=== PATIENT | male | born 2000 | race Caucasian/White ===

== ENCOUNTER 2019-05-20 12:12 | Emergency (ER) | payer OTHER ==
[~2019-05-20] VITALS: Ht 182.9 cm; Wt 79.4 kg
[~2019-05-20 12:12] MED LIST: CRUTCH3 XX; IBUP600 PO; Pepcid20 MG PO; Prednisone20 MG PO
[2019-05-20 12:41] LABS: BASOPHILS ABSOLUTE AUTO 0.07 K/mm3 (0.00-0.23); BASOPHILS PERCENT AUTO 0 % (0-2); EOSINOPHILS ABSOLUTE AUTO 0.17 K/mm3 (0.00-0.68); EOSINOPHILS PERCENT AUTO 1 % (0-6); Hematocrit 48.2 % (37.0-53.0); Hemoglobin 16.5 g/dL (13.5-17.5); IMMATURE GRAN ABSOLUTE AUTO 0.08 K/mm3 (0.00-0.10); IMMATURE GRAN PERCENT AUTO 0 % (0-1); LYMPHOCYTES ABSOLUTE AUTO 1.13 K/mm3 (0.84-5.20); LYMPHOCYTES PERCENT AUTO 6 % (21-46); MONOCYTES ABSOLUTE AUTO 1.33 K/mm3 (0.16-1.47); MONOCYTES PERCENT AUTO 7 % (4-13); Mean Corpuscular HGB Conc 34.2 g/dL (31.5-36.5); Mean Corpuscular Volume 90 fL (80-100); Mean Platelet Volume 9.9 fL (9.1-12.4); NEUTROPHILS ABSOLUTE AUTO 16.16 K/mm3 (1.96-9.15); NEUTROPHILS PERCENT AUTO 85 % (41-73); Platelet Count 261 K/mm3 (150-400); Red Blood Cell Count 5.33 M/mm3 (4.30-5.90); White Blood Cell Count 18.94 K/mm3 (4.00-11.30)
[2019-05-20 12:59] LABS: Alanine Aminotransfer (ALT/SGP 25 U/L (12-78); Albumin, Blood 4.3 g/dL (3.4-5.0); Albumin/Globulin Ratio 1.2 (0.8-1.8); Alk Phos 75 U/L (50-136); Anion Gap 8 mmol/L (6-16); Aspartate Aminotrans (AST/SGOT 22 U/L (12-37); Bilirubin, Total 1.6 mg/dL (0.1-1.0); Blood Urea Nitrogen 11 mg/dL (8-24); Bun/Creatinine Ratio 11.7 (12.0-20.0); CO2, Blood 22 mmol/L (21-32); Calcium, Blood 9.3 mg/dL (8.5-10.1); Chloride, Blood 110 mmol/L (98-108); Creatinine, Blood 0.94 mg/dL (0.60-1.20); Globulin, Blood 3.7 g/dL (2.2-4.0); Glomerular Filtration Rate >60 (60-); Glucose, Blood 93 mg/dL (70-99); Potassium, Blood 3.9 mmol/L (3.5-5.5); Sodium, Blood 140 mmol/L (136-145)
[2019-05-20] MEDS ORDERED: Zofran4 MG PO (14:18)
== END 2019-05-20 14:44 | disposition home or self-care (01) ==
LOC: ER 12:12
PROVIDERS: Physician Assistant
DX: R11.2 Nausea with vomiting, unspecified (principal); R19.7 Diarrhea, unspecified; R10.84 Generalized abdominal pain; F17.200 Nicotine dependence, unspecified, uncomplicated
CPT/HCPCS: 36415; 80053; 83690; 85025; 96361; 96374; 99284-25; J2405; J7030

== ENCOUNTER 2020-07-06 23:51 | Emergency (ER) | payer OTHER ==
[~2020-07-06] VITALS: Ht 182.9 cm; Wt 75.3 kg
[~2020-07-06 23:51] MED LIST changes: +Zofran4 MG PO
[2020-07-07] MEDS ORDERED: AMOCLA875 PO (00:34)
== END 2020-07-07 00:58 | disposition home or self-care (01) ==
LOC: ER 23:51
DX: S70.252A Superficial foreign body, left hip, initial encounter (principal); F17.210 Nicotine dependence, cigarettes, uncomplicated; Z23 Encounter for immunization; W45.8XXA Other foreign body or object entering through skin, initial encounter; Y93.89 Activity, other specified
CPT/HCPCS: 10120; 36415; 90471; 90714; 96365; 99282-25; A9270; J0696

== ENCOUNTER 2020-12-27 07:34 | Emergency (ER) | payer OTHER ==
[~2020-12-27] VITALS: Ht 182.9 cm; Wt 74.8 kg
[~2020-12-27 07:34] MED LIST changes: +AMOCLA875 PO
[2020-12-27 08:53] LABS: Source, Urine Clean Catch
[2020-12-27 09:02] LABS: Appearance, Urine Clear (Clear); Bilirubin, Urine Neg (Neg); Blood, Urine Neg (Neg); Color, Urine Yellow (P-Yellow); Glucose Qualitative, Urine Neg (Neg); Ketones, Urine Neg (Neg); Leukocyte Esterase, Urine Neg (Neg); Nitrite, Urine Neg (Neg); Protein, Urine Neg (Neg); Specific Gravity, Urine 1.015 (1.003-1.022); Urobilinogen, Urine NORM (Normal)
[2020-12-27] MEDS ORDERED: Robaxin-750750 MG PO (09:30)
[2020-12-27] MEDS ORDERED: IBUP800 PO (09:30)
== END 2020-12-27 09:49 | disposition home or self-care (01) ==
LOC: ER 07:34
PROVIDERS: Physician Assistant
DX: M54.6 Pain in thoracic spine (principal); F17.210 Nicotine dependence, cigarettes, uncomplicated
CPT/HCPCS: 81003; 96372; 99283-25; J1885

== ENCOUNTER 2022-02-26 02:25 | Emergency (ER) | payer OTHER ==
[~2022-02-26] VITALS: Ht 180.3 cm; Wt 83.0 kg
[~2022-02-26 02:25] MED LIST changes: +IBUP800 PO; +Robaxin-750750 MG PO
[2022-02-26] MEDS ORDERED: CYCL10 PO (03:34)
[2022-02-26] MEDS ORDERED: IBUP600 PO (03:34)
== END 2022-02-26 03:56 | disposition home or self-care (01) ==
LOC: ER 02:25
DX: M62.830 Muscle spasm of back (principal); F17.210 Nicotine dependence, cigarettes, uncomplicated
CPT/HCPCS: A9270; J1885

== ENCOUNTER 2022-03-24 07:31 | Emergency (ER) | payer OTHER ==
[~2022-03-24] VITALS: Ht 177.8 cm; Wt 87.5 kg
[~2022-03-24 07:31] MED LIST changes: +CYCL10 PO
[2022-03-24] MEDS ORDERED: TRAM50 PO (08:23)
[2022-03-24] MEDS ORDERED: AMOX500 PO (08:23)
[2022-03-24] MEDS ORDERED: IBU800 MG PO (08:23)
== END 2022-03-24 08:30 | disposition home or self-care (01) ==
LOC: ER 07:31
DX: K08.89 Other specified disorders of teeth and supporting structures (principal); K02.9 Dental caries, unspecified; F17.210 Nicotine dependence, cigarettes, uncomplicated
CPT/HCPCS: 99282

== ENCOUNTER 2022-08-09 16:31 | Emergency (ER) | payer OTHER ==
[~2022-08-09] VITALS: Ht 182.9 cm; Wt 77.1 kg
[~2022-08-09 16:31] MED LIST changes: +AMOX500 PO; +IBU800 MG PO; +TRAM50 PO
[2022-08-09] MEDS ORDERED: HYDR1TAB94 PO (18:43)
== END 2022-08-09 19:07 | disposition home or self-care (01) ==
LOC: ER 16:31
DX: S20.212A Contusion of left front wall of thorax, initial encounter (principal); F17.210 Nicotine dependence, cigarettes, uncomplicated; V86.96XA Unspecified occupant of dirt bike or motor/cross bike injured in nontraffic accident, initial encounter
CPT/HCPCS: 71101; 96372; 99283-25; J1885

== ENCOUNTER 2025-10-03 22:34 | Emergency (ER) | payer OTHER ==
[~2025-10-03] VITALS: Ht 177.8 cm; Wt 81.7 kg
[~2025-10-03 22:34] MED LIST changes: +HYDR1TAB94 PO
[2025-10-03 23:29] VITALS: BP 135/96
[2025-10-04] MEDS ORDERED: CEPH500 PO (01:06)
== END 2025-10-04 01:53 | disposition home or self-care (01) ==
LOC: ER 22:34
DX: L03.011 Cellulitis of right finger (principal); F19.90 Other psychoactive substance use, unspecified, uncomplicated; F17.210 Nicotine dependence, cigarettes, uncomplicated; Z79.899 Other long term (current) drug therapy; Z59.02 Unsheltered homelessness
CPT/HCPCS: 73140; 99283; A9270